=== PATIENT | female | born 2005 | race Caucasian/White ===

== ENCOUNTER 2025-01-28 14:31 | Emergency (ER) | payer SELFPAY ==
[~2025-01-28] VITALS: Ht 160 cm; Wt 57.2 kg
--- NOTE | 2025-01-28 14:41 | Physician Documentation ---
History of Present Illness ~ Stated Complaint: Time Seen by MD: 14:41 Source: patient Mode of Arrival: POV Exam Limitations: no limitations HPI 19 y/o female here due to suicidal thoughts BIB [facility]. Patient states that she was planning on going into [facility] and was planning on getting "strong pain killers." Patient states she then decided to call the police because she was concerned she was going to kill herself. Patient does not take any medication for depression. Patient states she struggles with social anxiety and anxiety issues but not depression. She states "a couple times a year" she feels suici joycelyn. She states a few years ago she wanted to jump off a bridge but did not do it. She states "nobody ever knew about that." She has never been hospitalized for thoughts of suicide. No hallucinations, delirium, illicit drug use. Medication Reconciliation Allergies: Coded Allergies: No Known Allergies (Unverified , 01/28/25) Past Medical History Past Medical History: No Pertinent History Past Surgical History: noncontributory Alcohol Use: None Drug Use: none Lives In: Home Review of Systems All Other Systems at this time: Reviewed and Negative Physical Exam Physical Exam General Appearance: Alert, WD/WN. NAD. TEARFUL. HEENT: NCAT, PERRL, EOMI. Neck: Supple, trachea midline. Cardiovascular: RRR. No m/r/g. Lungs: CTAB. Breathing unlabored Extremities: Normal inspection. No edema. Skin: Warm/dry, normal color Neurological: Alert and oriented x4, normal gait. Psychiatric: Affect congruent with mood. Progress Results/Orders Results/Orders Orders - MARIELY ISABEL Hcg, Ur Ql (01/28/25 14:41) Drug Screen, Urine (01/28/25 14:41) Ethanol (01/28/25 14:41) TSH (01/28/25 14:41) Med Rec (01/28/25 14:41) 1799.11 (01/28/25 14:41) BMP (01/28/25 14:41) Close Observation Level (01/28/25 14:41) Covid19 Binax Poc Result Entry (01/28/25 14:41) Regular Diet (01/28/25 Dinner) Completed Orders - MARIELY ISABEL Cbc/Diff (01/28/25 14:41) Ua With Microscopic (01/28/25 15:05) Vital Signs 01/28/25 14:36 Temp 98.2 Pulse 94 Resp 18 B/P (MAP) 142/93 Pulse Ox 97 O2 Flow Rate 0 Laboratory Tests Test 01/28/25 15:00 01/28/25 15:05 White Blood Count 14.4 H Red Blood Count 4.38 Hemoglobin 13.6 Hematocrit 39.5 Mean Corpuscular Volume 90.3 Mean Corpuscular Hemoglobin 31.0 Mean Corpuscular Hemoglobin Concent 34.4 Red Cell Distribution Width 12.7 Platelet Count 388 Mean Platelet Volume 7.0 L Neutrophils (%) (Auto) 76.9 H Lymphocytes (%) (Auto) 17.5 L Monocytes (%) (Auto) 4.5 Eosinophils (%) (Auto) 0.5 Basophils (%) (Auto) 0.6 Neutrophils # (Auto) 11.1 H Lymphocytes # (Auto) 2.5 Monocytes # (Auto) 0.7 Eosinophils # (Auto) 0.1 Basophils # (Auto) 0.1 CBC Comment Chemistry Comments Urine Specimen Description Non-specified Urine Color Yellow Urine Clarity Cloudy Urine pH 6.0 Urine Specific Foley 1.025 Urine Protein Negative Urine Glucose (UA) Negative Urine Ketones 15 H Urine Occult Blood Large H Urine Nitrite Negative Urine Bilirubin Negative Urine Urobilinogen 0.2 Urine Leukocyte Esterase Trace H Urine RBC Tntc Urine WBC 5-10 H Urine Squamous Epithelial Cells Few Urine Bacteria Few Urine Mucus None seen Volume Urine Centrifuged 10 ml Urine HCG, Qualitative Negative Urine Comment Drug Screen Comment Medical Decision Making Differential Dx:Considerations: Include: Alcohol abuse, Anxiety, Bipolar disorder, Conversion disorder, Depression, Encephaloathy, Homicidal, Panic disorder, Personality disorder, Schizophrenia, Substance abuse, Suicidal Differential Diagnosis URINALYSIS SHOWED +BACTERIA AND LEUKOCYTE ESTERACE; HOWEVER, PATIENT IS COMPLETELY ASYMPTOMATIC AND THUS DID NOT TREAT. ELEVATED WHITE COUNT LIKELY DUE TO BEING ON THE DRY SIDE URINES +FOR KETONES. PATIENT WAS NOT HAVING ANY DIARRHEA OR NAUSEA OR VOMITING AND THUS ORAL HYDRATION APPROPRIATE Departure Time of Disposition: 15:25 Disposition: 30 STILL A PATIENT Impression: Primary Impression: Suicidal thoughts Additional Impressions: Anxiety Depression Qualified Codes: F33.2 - Major depressive disorder, recurrent severe without psychotic features Condition: Fair Discharge Instructions: Suicidal Feelings: How to Help Yourself Additional Instructions: Transfer orders for [facility]: At this time there is no evidence of an emergent medical condition that would preclude (admission/transfer) to a psychiatric unit via [facility] protocol for further psychiatric, as well as medical evaluation and treatment. At this time I have no reason to believe that transfer via [facility] protocol would have serious medical compromise in the patient's health. Referrals: NO PRIMARY CARE PROVIDER (PCP) Education Educated: Patient Educated regarding: diagnosis, treatment, need for follow up Signature Scribe Signature: X Attestation: MARIELY RAMOS January 28, 2025 14:41
[2025-01-28 15:16] LABS: BILIRUBIN,URINE NEGATIVE (Neg); CLARITY,URINE CLOUDY (Clear); COLOR,URINE YELLOW (Yellow); GLUCOSE, URINE NEGATIVE (Neg); KETONES,URINE 15 mg/dl (Neg); LEUKOCYTE ESTERASE ,URINE TRACE (Neg); NITRITES, URINE NEGATIVE (Neg); OCCULT BLOOD,URINE LARGE (Neg); PROTEIN,URINE NEGATIVE (Neg); UA COLLECTION TYPE NON-SPECIFIED; UROBILINOGEN,URINE 0.2 E.U/dL (0.2-1.0)
[2025-01-28 15:17] LABS: BASOPHILS # (AUTO) 0.1 X10'3 (0-0.2); BASOPHILS % (AUTO) 0.6 % (0-1); EOSINOPHILS # (AUTO) 0.1 X10'3 (0-0.9); EOSINOPHILS % (AUTO) 0.5 % (0-6); HEMATOCRIT 39.5 % (35.0-45.0); HEMOGLOBIN 13.6 g/dl (12.0-16.0); LYMPHOCYTES # (AUTO) 2.5 X10'3 (1.1-4.8); LYMPHOCYTES % (AUTO) 17.5 % (21-51); MEAN CORPUSCULAR HGB CONC 34.4 g/dL (33.0-36.5); MEAN CORPUSCULAR VOLUME 90.3 FL (78-98); MONOCYTES # (AUTO) 0.7 X10'3 (0-0.9); MONOCYTES % (AUTO) 4.5 % (2-12); NEUTROPHILS # (AUTO) 11.1 X10'3 (1.8-7.7); NEUTROPHILS % (AUTO) 76.9 % (42-75); PLATELET COUNT 388 X10'3 (140-440); RED BLOOD COUNT 4.38 X10'6 (4.20-5.60); RED CELL DISTRIBUTION WIDTH 12.7 % (11.5-14.5); WHITE BLOOD COUNT 14.4 X10'3 (4.5-11.0)
[2025-01-28 15:18] LABS: URINE HCG NEGATIVE (NEG)
[2025-01-28 15:22] LABS: BACTERIA,URINE FEW /HPF (Neg); MUCUS STRANDS NONE SEEN /LPF (Neg); RBC,URINE TNTC /HPF (0-2); SQUAMOUS EPITHELIAL CELL,UR FEW /LPF (FEW)
[2025-01-28 15:33] LABS: URINE AMPHETAMINE SCREEN NEGATIVE (Neg); URINE BARBITUATE SCREEN NEGATIVE (Neg); URINE BENZODIAZEPINES SCREEN NEGATIVE (Neg); URINE CANNABINOID SCREEN NEGATIVE (Neg); URINE COCAINE SCREEN NEGATIVE (Neg); URINE METHADONE SCREEN NEGATIVE (Neg); URINE OPIATE SCREEN NEGATIVE (Neg); URINE PHENCYCLIDINE SCREEN NEGATIVE (Neg)
[2025-01-28 15:36] LABS: ALBUMIN 3.9 G/DL (3.4-5.0); ANION GAP 5 (8-16); BLOOD UREA NITROGEN 15 MG/DL (7-18); BUN/CREATININE RATIO 21.1 (10.0-20.0); CALCIUM 9.2 MG/DL (8.5-10.1); CHLORIDE 106 MMOL/L (99-107); CREATININE 0.71 MG/DL (0.40-0.90); ETHANOL < 10 MG/DL (<10); GLUCOSE 108 MG/DL (70-104); SODIUM 139 MMOL/L (135-145); TOTAL CARBON DIOXIDE 28.1 MMOL/L (24-32); eCRCL 105 ML/MIN; eGFR > 90 ML/MIN
[2025-01-28] MEDS ORDERED: NO HOME MEDS (15:39)
[2025-01-28 19:17] VITALS: BP 138/90; PULSE 91; RESP 16; TEMP 98.4; O2SAT 99
== END 2025-01-28 19:21 | disposition home or self-care (01) ==
LOC: ER 14:32
DX: R45.851 Suicidal ideations (principal); F41.9 Anxiety disorder, unspecified; F32.A Depression, unspecified; Z20.822 Contact with and (suspected) exposure to COVID-19
CPT/HCPCS: 36415; 80048; 80305; 80320; 81001; 81025; 84443; 85025; 87811; 99284